=== PATIENT | female | born 1985 | race Caucasian/White ===

== ENCOUNTER → 2019-01-05 | Outpatient (CLI) | payer BC ==
--- NOTE | 2019-01-05 15:43 | Diagnostic Imaging Report ---
CHEST PA/LAT (2 VIEW) Indication: Shortness of breath. Comparison: None available. Findings: No focal pneumonic consolidation, pleural effusion or pneumothorax. Normal heart size and pulmonary vasculature. Impression: No acute cardiopulmonary process. Dictated by: Dictated on workstation # [id number]
== END ==
LOC: RAD FS 15:26
PROVIDERS: ATTEND Nurse Practitioner Family
DX: R06.02 Shortness of breath (principal)
CPT/HCPCS: 71046

== ENCOUNTER 2019-05-07 17:02 | Emergency (ER) | payer BC | END 2019-05-07 20:06 | disposition home or self-care (01) | LOC: ER FS 17:02 ==

== ENCOUNTER 2022-08-21 18:51 | Emergency (ER) | payer BC ==
[~2022-08-21] VITALS: Ht 175.2 cm; Wt 120.0 kg
--- NOTE | 2022-08-21 18:59 | ED General ---
General Stated Complaint: SOB,CP,MUSCLE SPASM IN LEGS Source of Information: Patient Exam Limitations: No Limitations History of Present Illness Date Seen by Provider: Aug 21, 2022 Time Seen by Provider: 18:55 Initial Comments Patient is a 37-year-old female with a history of lupus, chronic costochondritis, hypertension with recent hospitalization for bradycardia and hypokalemia. Patient reports increased chest wall pain pattern location similar to chronic costochondritis with increased severity and shortness of breath. Patient also patient's delayed cognition and decreased concentration consistent with previous lupus exacerbations. Symptom onset was yesterday and have gradually increased. She does not have fevers chills, headache, cough, sore throat. She denies blurred vision change in vision nausea vomiting sweats, urinary frequency urgency or dysuria. No other acute symptoms or complaints. Timing/Duration: Other Modifying Factors: improves with Other Associated Systoms: Other Allergies and Home Medications Allergies Coded Allergies: codeine (Verified Allergy, Unknown, 05/07/19) diphenhydramine (Verified Allergy, Unknown, 05/07/19) metronidazole (Verified Allergy, Unknown, 05/07/19) Patient Home Medication List Home Medication List Reviewed: Yes Review of Systems Review of Systems Constitutional: see HPI EENTM: see HPI Respiratory: see HPI Cardiovascular: see HPI Gastrointestinal: see HPI Genitourinary: see HPI : No Musculoskeletal: see HPI Skin: see HPI Psychiatric/Neurological: See HPI Hematologic/Lymphatic: See HPI Immunological/Allergic: see HPI All Other Systems Reviewed Negative Unless Noted: No Past Gncgzhk-Hfxdiw-Dwtrhf Hx Patient Social History Tobacco Use?: No Seasonal Allergies Seasonal Allergies: No Past Medical History Gallbladder Respiratory: Yes Asthma Cardiac: No Genitourinary: No Gastrointestinal: No Musculoskeletal: Yes Fibromyalgia Endocrine: Yes Lupus HEENT: Yes Macular Degeneration Cancer: No Psychosocial: No Integumentary: No Physical Exam Vital Signs Vital Signs - First Documented 08/21/22 18:54 Temp 36.6 Pulse 81 Resp 20 B/P (MAP) 162/83 (109) Pulse Ox 99 O2 Delivery Room Air Capillary Refill : Height, Weight, BMI Height: '" Weight: lbs. oz. kg; BMI Method: General Appearance: No Apparent Distress Eyes: Bilateral Eye Normal Inspection, Bilateral Eye PERRL, Bilateral Eye EOMI HEENT: PERRL/EOMI, Normal ENT Inspection, Pharynx Normal Neck: Full Range of Motion, Normal Inspection Respiratory: Lungs Clear, Normal Breath Sounds Cardiovascular: Regular Rate, Rhythm, No Edema Gastrointestinal: Non Tender, Soft Extremity: Non Tender, No Calf Tenderness Neurologic/Psychiatric: Alert, Oriented x3 Skin: Normal Color Focused Exam Sepsis Stage: Ruled Out Progress/Results/Core Measures Suspected Sepsis SIRS Temperature: Pulse: Respiratory Rate: Laboratory Tests 08/21/22 19:30: White Blood Count 9.6 Blood Pressure / Mean: Laboratory Tests 08/21/22 19:30: Creatinine 0.90, Platelet Count 288, Total Bilirubin 0.3 Results/Orders Lab Results Laboratory Tests Test 08/21/22 19:30 Range/Units White Blood Count 9.6 4.3-11.0 10^3/uL Red Blood Count 4.32 3.80-5.11 10^6/uL Hemoglobin 12.8 11.5-16.0 g/dL Hematocrit 37 35-52 % Mean Corpuscular Volume 86 80-99 fL Mean Corpuscular Hemoglobin 30 25-34 pg Mean Corpuscular Hemoglobin Concent 35 32-36 g/dL Red Cell Distribution Width 12.9 10.0-14.5 % Platelet Count 288 130-400 10^3/uL Mean Platelet Volume 9.5 9.0-12.2 fL Immature Granulocyte % (Auto) 0 % Neutrophils (%) (Auto) 65 42-75 % Lymphocytes (%) (Auto) 27 12-44 % Monocytes (%) (Auto) 6 0-12 % Eosinophils (%) (Auto) 1 0-10 % Basophils (%) (Auto) 1 0-10 % Neutrophils # (Auto) 6.2 1.8-7.8 10^3/uL Lymphocytes # (Auto) 2.6 1.0-4.0 10^3/uL Monocytes # (Auto) 0.6 0.0-1.0 10^3/uL Eosinophils # (Auto) 0.1 0.0-0.3 10^3/uL Basophils # (Auto) 0.1 0.0-0.1 10^3/uL Immature Granulocyte # (Auto) 0.0 0.0-0.1 10^3/uL Sodium Level 136 135-145 MMOL/L Potassium Level 4.0 3.6-5.0 MMOL/L Chloride Level 106 98-107 MMOL/L Carbon Dioxide Level 18 L 21-32 MMOL/L Anion Gap 12 5-14 MMOL/L Blood Urea Nitrogen 15 7-18 MG/DL Creatinine 0.90 0.60-1.30 MG/DL Estimat Glomerular Filtration Rate 84 BUN/Creatinine Ratio 17 Glucose Level 114 H 70-105 MG/DL Calcium Level 9.4 8.5-10.1 MG/DL Corrected Calcium 9.6 8.5-10.1 MG/DL Magnesium Level 1.9 1.6-2.4 MG/DL Total Bilirubin 0.3 0.1-1.0 MG/DL Aspartate Amino Transf (AST/SGOT) 14 5-34 U/L Alanine Aminotransferase (ALT/SGPT) 23 0-55 U/L Alkaline Phosphatase 60 40-136 U/L Troponin I < 0.30 <0.30 NG/ML Pro-B-Type Natriuretic Peptide 46.3 <125.0 PG/ML Total Protein 6.5 6.4-8.2 GM/DL Albumin 3.8 3.2-4.5 GM/DL My Orders Orders - IVY CHOWDHURY DO Cbc With Automated Diff (08/21/22 18:54) Comprehensive Metabolic Panel (08/21/22 18:54) Chest 1 View Ap/Pa Only (08/21/22 18:54) Ekg Tracing (08/21/22 18:54) Troponin I Fs (08/21/22 18:54) Magnesium (08/21/22 18:54) Probnp Fs (08/21/22 19:46) Dexamethasone Injection (Decadron Inje (08/21/22 20:45) Enoxaparin Injection (Lovenox Injection) (08/21/22 20:45) Vital Signs/I&O 08/21/22 18:54 Temp 36.6 Pulse 81 Resp 20 B/P (MAP) 162/83 (109) Pulse Ox 99 O2 Delivery Room Air Capillary Refill : Departure Communication (Admissions) Chest x-ray: No acute cardiopulmonary disease EKG: Sinus rhythm, no acute ST-T wave changes, normal WA, QRS, QTc intervals. Patient with atypical chest pain in same location and pattern as chronic costochondritis. Chest x-ray, EKG and troponin are reassuring. IM steroids given. Will place patient on a Medrol Dosepak for treatment of underlying lupus with instructions to follow-up with her acid bath mixer tomorrow for further management recommendations. Patient also reports bilateral leg pain and heaviness with recent hypokalemia. Potassium and electrolytes are normal. Patient does have risk factors for PE due to recent hospitalization including bilateral lower extremity pain. Ultrasound is not available at this facility. Suspect pain is musculoskeletal. Patient will be given a dose of Lovenox with instructions to return to the ED tomorrow during the day D-dimer when sonography is available.. Return precautions reviewed. Patient verbalizes understanding agreement discharge instructions prior to departure. Impression Primary Impression: Chest wall pain Additional Impressions: Costochondritis Bilateral leg pain History of lupus Disposition: HOME, SELF-CARE Condition: Stable Departure-Patient Inst. Decision time for Depature: 20:43 Referrals: CARLITOS BARAJAS MD (PCP/Family) Primary Care Physician Patient Instructions: Chest Pain (DC) Add. Discharge Instructions: You were evaluated in the emergency department for chest wall pain, shortness of breath and bilateral leg pain. EKG lab and imaging's were performed and are nondiagnostic. The exact cause of your symptoms has not been determined but may be related to lupus and lupus related complications. Please fill Medrol Dosepak and contact your acid bath mixer office tomorrow for further management of lupus. Blood clots in your lower extremities have not been ruled out, and need to return to the ER during daytime hours for ultrasounds of your lower extremities. In the meantime, if you develop new or worsening symptoms, return to the emergency department. IVY CHOWDHURY DO Aug 21, 2022 18:59
[2022-08-21 19:37] LABS: BASOPHILS # (AUTO) 0.1 10^3/uL (0.0-0.1); BASOPHILS % (AUTO) 1 % (0-10); EOSINOPHILS # (AUTO) 0.1 10^3/uL (0.0-0.3); EOSINOPHILS % (AUTO) 1 % (0-10); HEMATOCRIT 37 % (35-52); HEMOGLOBIN 12.8 g/dL (11.5-16.0); LYMPHOCYTES # (AUTO) 2.6 10^3/uL (1.0-4.0); LYMPHOCYTES % (AUTO) 27 % (12-44); MEAN CORPUSCULAR HEMOGLOBIN 30 pg (25-34); MEAN CORPUSCULAR HGB CONC 35 g/dL (32-36); MEAN CORPUSCULAR VOLUME 86 fL (80-99); MEAN PLATELET VOLUME 9.5 fL (9.0-12.2); MONOCYTES # (AUTO) 0.6 10^3/uL (0.0-1.0); MONOCYTES % (AUTO) 6 % (0-12); NEUTROPHILS # (AUTO) 6.2 10^3/uL (1.8-7.8); NEUTROPHILS % (AUTO) 65 % (42-75); PLATELET COUNT 288 10^3/uL (130-400); WHITE BLOOD COUNT 9.6 10^3/uL (4.3-11.0)
--- NOTE | 2022-08-21 19:54 | Diagnostic Imaging Report ---
INDICATION: Chest pain. COMPARISON: January 05, 2019. TECHNIQUE: Single radiograph of the chest dated August 21, 2022. FINDINGS: The cardiac silhouette is within normal limits in size. No significant pulmonary vascular congestion. The lungs are clear of focal pulmonary opacity. No pleural effusion. No pneumothorax. No acute osseous abnormality. IMPRESSION: Stable appearing examination without acute cardiopulmonary abnormality. Dictated by: Dictated on workstation # [id number]
[2022-08-21 20:21] LABS: ALANINE AMINOTRANSFERASE 23 U/L (0-55); ALKALINE PHOSPHATASE 60 U/L (40-136); BILIRUBIN,TOTAL 0.3 MG/DL (0.1-1.0); BUN/CREATININE RATIO 17; CALCIUM 9.4 MG/DL (8.5-10.1); CARBON DIOXIDE 18 MMOL/L (21-32); CHLORIDE 106 MMOL/L (98-107); GFR ESTIMATED 84; GLUCOSE 114 MG/DL (70-105); MAGNESIUM 1.9 MG/DL (1.6-2.4); SODIUM 136 MMOL/L (135-145)
[2022-08-21 20:22] LABS: ALBUMIN 3.8 GM/DL (3.2-4.5); TOTAL PROTEIN 6.5 GM/DL (6.4-8.2)
[2022-08-21] MEDS ORDERED: ENOXAPARIN 60 MG/0.6 ML (LOVENOX) SYR SC ONE (20:45)
[2022-08-21 21:00] VITALS: BP 179/76
[2022-08-21] MEDS ORDERED: NF-METHYLP PO (21:01)
== END 2022-08-21 21:00 | disposition home or self-care (01) ==
LOC: EDUNIT# 18:51 → ER FS 18:52
DX: M94.0 Chondrocostal junction syndrome [Tietze] (principal); M79.605 Pain in left leg; M79.604 Pain in right leg; M32.9 Systemic lupus erythematosus, unspecified; Z28.310 Unvaccinated for COVID-19
CPT/HCPCS: 36415; 71045; 80053; 83735; 83880; 84484; 85025; 93005

== ENCOUNTER → 2022-08-22 | Outpatient (CLI) | payer BC ==
[~2022-08-22] MED LIST: NF-METHYLP PO
--- NOTE | 2022-08-22 11:33 | Diagnostic Imaging Report ---
INDICATION: Bilateral leg pain. Bilateral lower extremity venous Doppler study was performed in the routine fashion with color flow Doppler and waveform analysis. FINDINGS: The common femoral veins, superficial femoral veins, popliteal veins and visualized portion of the tibial veins show normal compressibility and venous flow patterns. There is normal augmentation. IMPRESSION: No evidence of deep vein thrombosis in the major veins of both legs. Dictated by: Dictated on workstation # [id number]
== END ==
LOC: RAD FS 10:42
PROVIDERS: ATTEND Emergency Medicine
DX: M79.605 Pain in left leg (principal); M79.604 Pain in right leg; M32.9 Systemic lupus erythematosus, unspecified
CPT/HCPCS: 93970

== ENCOUNTER 2023-02-23 11:26 | Emergency (ER) | payer BC ==
[~2023-02-23] VITALS: Ht 172.7 cm; Wt 125.2 kg
--- NOTE | 2023-02-23 11:33 | ED General ---
General Stated Complaint: CP/L ARM PAIN AND WEAKNESS/NUMBNESS History of Present Illness Date Seen by Provider: Feb 23, 2023 Time Seen by Provider: 11:31 Initial Comments 38-year-old female with PMH of lupus/pleurisy/GERD/costochondritis, is here with complaints of chronic chest pain over the past couple of weeks, but today patient noticed the pain is going down her left upper extremity and also into her jaw. Patient does not have chest pain here in the ER at this time. Patient reports that she is having fluctuating changes in her heart rate and sometimes she feels like it is very fast, and other times it is very slow in the 40's, and she has associated mild SOB along with it. She does not have any known arrhythmias. Patient also states that her last BNP was elevated in the 800s and her PCP has scheduled her for an echo and stress test for next week. She was told to come to the ER by her PCP if any of her symptoms worsen. Patient is not having any chest pain or SOB in the ER and vitas stable. Denies fever and chills, cough, URI symptoms. Allergies and Home Medications Allergies Coded Allergies: codeine (Verified Allergy, Unknown, 05/07/19) diphenhydramine (Verified Allergy, Unknown, 05/07/19) metronidazole (Verified Allergy, Unknown, 05/07/19) Patient Home Medication List Home Medication List Reviewed: Yes Methylprednisolone (Medrol Dose pack) 4 Mg Tab, 4 MG PO UD Prescribed by: IVY CHOWDHURY on 08/21/222100 Review of Systems Review of Systems Constitutional: no symptoms reported EENTM: no symptoms reported Respiratory: no symptoms reported Cardiovascular: see HPI Musculoskeletal: no symptoms reported Skin: no symptoms reported Psychiatric/Neurological: No Symptoms Reported Hematologic/Lymphatic: No Symptoms Reported Past Ghivkzz-Ubzevi-Fbxgbp Hx Immunizations Up To Date First/Initial COVID19 Vaccinat: Unvaccinated Seasonal Allergies Seasonal Allergies: No Past Medical History Surgery/Hospitalization HX: Lupus, HTN, GERD, Cholecystectomy, Partial Thyroidectomy Gallbladder Respiratory: Yes Asthma Cardiac: No Genitourinary: No Gastrointestinal: No Musculoskeletal: Yes Fibromyalgia Endocrine: Yes Lupus HEENT: Yes Macular Degeneration Cancer: No Psychosocial: No Integumentary: No Physical Exam Vital Signs Vital Signs - First Documented 02/23/23 11:30 Temp 36.0 Pulse 91 Resp 17 B/P (MAP) 142/87 (105) Pulse Ox 99 O2 Delivery Room Air Capillary Refill : Height, Weight, BMI Height: '" Weight: lbs. oz. kg; 39.00 BMI Method: General Appearance: No Apparent Distress, WD/WN HEENT: PERRL/EOMI Neck: Full Range of Motion, Normal Inspection, Non Tender, Supple Respiratory: Chest Non Tender, Lungs Clear, Normal Breath Sounds, No Accessory Muscle Use, No Respiratory Distress, Other (Patient is satting at 100% on room air the entire time in the ER) Cardiovascular: Regular Rate, Rhythm, No Edema, Normal Peripheral Pulses, Other (Bilateral legs are normal, no swelling, no erythema.) Gastrointestinal: Normal Bowel Sounds, Non Tender, Soft Extremity: Normal Inspection, Normal Range of Motion, Non Tender, No Calf Tenderness (Homans' sign negative bilaterally) Neurologic/Psychiatric: Alert, Oriented x3, No Motor/Sensory Deficits, Normal Mood/Affect, crossbow maker II-XII Norm as Tested Skin: Normal Color Lymphatic: No Adenopathy Progress/Results/Core Measures Suspected Sepsis SIRS Temperature: Pulse: Respiratory Rate: Laboratory Tests 02/23/23 11:40: White Blood Count 8.2 Blood Pressure / Mean: Laboratory Tests 02/23/23 11:40: Creatinine 0.80, INR Comment 0.8, Platelet Count 310, Total Bilirubin 0.3 Results/Orders Lab Results Laboratory Tests Test 02/23/23 11:30 02/23/23 11:40 Range/Units Urine Color YELLOW Urine Clarity CLEAR Urine pH 6.0 5-9 Urine Specific [place] 1.010 L 1.016-1.022 Urine Protein NEGATIVE NEGATIVE Urine Glucose (UA) NEGATIVE NEGATIVE Urine Ketones NEGATIVE NEGATIVE Urine Nitrite NEGATIVE NEGATIVE Urine Bilirubin NEGATIVE NEGATIVE Urine Urobilinogen 0.2 < = 1.0 MG/DL Urine Leukocyte Esterase NEGATIVE NEGATIVE Urine RBC (Auto) TRACE-I H NEGATIVE Urine RBC NONE /HPF Urine WBC 0-2 /HPF Urine Squamous Epithelial Cells 5-10 /HPF Urine Crystals NONE /LPF Urine Bacteria FEW H /HPF Urine Casts NONE /LPF Urine Mucus MODERATE H /LPF Urine Culture Indicated NO Urine Opiates Screen NEGATIVE NEGATIVE Urine Oxycodone Screen NEGATIVE NEGATIVE Urine Methadone Screen NEGATIVE NEGATIVE Urine Propoxyphene Screen NEGATIVE NEGATIVE Urine Barbiturates Screen NEGATIVE NEGATIVE Ur Tricyclic Antidepressants Screen NEGATIVE NEGATIVE Urine Phencyclidine Screen NEGATIVE NEGATIVE Urine Amphetamines Screen NEGATIVE NEGATIVE Urine Methamphetamines Screen NEGATIVE NEGATIVE Urine Benzodiazepines Screen NEGATIVE NEGATIVE Urine Cocaine Screen NEGATIVE NEGATIVE Urine Cannabinoids Screen NEGATIVE NEGATIVE White Blood Count 8.2 4.3-11.0 10^3/uL Red Blood Count 4.76 3.80-5.11 10^6/uL Hemoglobin 14.1 11.5-16.0 g/dL Hematocrit 41 35-52 % Mean Corpuscular Volume 86 80-99 fL Mean Corpuscular Hemoglobin 30 25-34 pg Mean Corpuscular Hemoglobin Concent 35 32-36 g/dL Red Cell Distribution Width 13.0 10.0-14.5 % Platelet Count 310 130-400 10^3/uL Mean Platelet Volume 9.4 9.0-12.2 fL Immature Granulocyte % (Auto) 0 % Neutrophils (%) (Auto) 68 42-75 % Lymphocytes (%) (Auto) 24 12-44 % Monocytes (%) (Auto) 5 0-12 % Eosinophils (%) (Auto) 2 0-10 % Basophils (%) (Auto) 1 0-10 % Neutrophils # (Auto) 5.6 1.8-7.8 10^3/uL Lymphocytes # (Auto) 2.0 1.0-4.0 10^3/uL Monocytes # (Auto) 0.4 0.0-1.0 10^3/uL Eosinophils # (Auto) 0.1 0.0-0.3 10^3/uL Basophils # (Auto) 0.1 0.0-0.1 10^3/uL Immature Granulocyte # (Auto) 0.0 0.0-0.1 10^3/uL Prothrombin Time 12.1 L 12.2-14.7 SEC INR Comment 0.8 0.8-1.4 Activated Partial Thromboplast Time 24 24-35 SEC D-Dimer 1.37 H 0.00-0.49 UG/ML Sodium Level 137 135-145 MMOL/L Potassium Level 4.0 3.6-5.0 MMOL/L Chloride Level 104 98-107 MMOL/L Carbon Dioxide Level 22 21-32 MMOL/L Anion Gap 11 5-14 MMOL/L Blood Urea Nitrogen 11 7-18 MG/DL Creatinine 0.80 0.60-1.30 MG/DL Estimat Glomerular Filtration Rate 96 BUN/Creatinine Ratio 14 Glucose Level 100 70-105 MG/DL Calcium Level 9.2 8.5-10.1 MG/DL Corrected Calcium 9.1 8.5-10.1 MG/DL Magnesium Level 2.0 1.6-2.4 MG/DL Total Bilirubin 0.3 0.1-1.0 MG/DL Aspartate Amino Transf (AST/SGOT) 18 5-34 U/L Alanine Aminotransferase (ALT/SGPT) 28 0-55 U/L Alkaline Phosphatase 72 40-136 U/L Troponin I < 0.30 <0.30 NG/ML Pro-B-Type Natriuretic Peptide 61.7 <125.0 PG/ML Total Protein 7.0 6.4-8.2 GM/DL Albumin 4.1 3.2-4.5 GM/DL My Orders Orders - KALEB JEFFERS MD Continuous Ekg Monitoring (02/23/23 11:55) Ekg Tracing (02/23/23 11:55) Chest 1 View Ap/Pa Only (02/23/23 11:55) Cbc With Automated Diff (02/23/23 11:55) Comprehensive Metabolic Panel (02/23/23 11:55) Fibrin Degradation Products (02/23/23 11:55) Drug Screen Stat (Urine) (02/23/23 11:55) Magnesium (02/23/23 11:55) Protime With Inr (02/23/23 11:55) Partial Thromboplastin Time (02/23/23 11:55) Ua Culture If Indicated (02/23/23 11:55) Probnp Fs (02/23/23 11:55) Troponin I Fs (02/23/23 11:55) Ct Angio Chest W (R/O Pe) (02/23/23 12:55) Ct Angio Chest W (R/O Pe) (02/23/23 ) Iohexol Injection (Omnipaque 350 Mg/Ml 1 (02/23/23 13:00) Received Contrast (Hold Metformin- Contr (02/23/23 13:00) Ns (Ivpb) (Sodium Chloride 0.9% Ivpb Bag (02/23/23 13:00) Enoxaparin Injection (Lovenox Injection) (02/23/23 14:15) Vital Signs/I&O 02/23/23 11:30 Temp 36.0 Pulse 91 Resp 17 B/P (MAP) 142/87 (105) Pulse Ox 99 O2 Delivery Room Air Capillary Refill : Progress Note : Progress Note 1. ACS RULED OUT: ELEVATED D-DIMER - CXR: normal - EKG/ Troponin - BNP: normal - CBC/CMP: unremarkable - UA/ UDS: negative -Patient's vital signs have been stable the entire time she was in the ER and she has been satting 100% on room air, with a normal heart rate. The D-dimer may be elevated due to her autoimmune condition, and as per clinical examination and vitals, patient is unlikely to have a PE. Pt is insistent to get a VQ scan. I have also called [facility] and her PCP, Dr Barajas as well, but left him a voicemail since he did not garbage pick up worker. I spoke to the electro mechanical technician at [facility] , who stated that they will have VQ scan available only on Friday. - Pt is allergic to contrast and to Benadryl, so an out-patient order form given for VQ scan. Pt instructed to call scheduling at [facility] tomorrow morning to schedule VQ scan for the afternoon. - Gave pt Lovenox 100 scin the ER - If symptoms such as worsening SOB or chest pain develops, advised pt to go to the ER - Follow up with PCP in the next 3 days and call PCP tomorrow morning. -The patient was seen in the ED, and treated appropriately to presentation at a specific point in time. Patient is informed that there is a possibility that disease and illness can evolve and change in acuity rapidly or slowly after patient is discharged from the ER. Precautionary advice given to the patient for immediate return to ER if symptoms worsen or do not resolve, and to seek emergency care sooner rather than later. Pt also advised on the importance of PCP follow up and compliance with management and follow up plan with PCP and/or specialist, as this is part of the management plan. Pt verbally expressed understanding. ECG Initial ECG Rhythm: Normal Sinus Initial ECG Intervals: Normal Initial ECG Impression: Normal Diagnostic Imaging Diagonstic Imaging: Xray Plain Films/CT/US/NM/MRI: chest Follow-up with PCP to: Discuss Further Options (I have called Dr. Barajas at 13: 30 today to discuss patient since Dr. Barajas is her PCP, I left a voicemail for him but he has not called back. Today is a Friday.) Departure Impression Primary Impression: Elevated d-dimer Disposition: HOME, SELF-CARE Condition: Stable Departure-Patient Inst. Referrals: CARLITOS BARAJAS MD (PCP) Primary Care Physician Patient Instructions: D-Dimer Test, Heart Healthy Diet, Pericarditis, Adult (DC) Add. Discharge Instructions: - Pt is allergic to contrast and to Benadryl, out-patient order form given for VQ scan. Pt instructed to call scheduling at [facility] tomorrow morning to schedule VQ scan for the afternoon. - Vitals stable in the ER - If symptoms such as worsening SOB or chest pain develops, advised pt to go to the ER - Follow up with PCP in the next 3 days and call PCP tomorrow morning. KALEB JEFFERS MD Feb 23, 2023 11:33
[2023-02-23 12:01] LABS: BASOPHILS # (AUTO) 0.1 10^3/uL (0.0-0.1); BASOPHILS % (AUTO) 1 % (0-10); EOSINOPHILS # (AUTO) 0.1 10^3/uL (0.0-0.3); EOSINOPHILS % (AUTO) 2 % (0-10); HEMATOCRIT 41 % (35-52); HEMOGLOBIN 14.1 g/dL (11.5-16.0); LYMPHOCYTES % (AUTO) 24 % (12-44); MEAN CORPUSCULAR HEMOGLOBIN 30 pg (25-34); MEAN CORPUSCULAR HGB CONC 35 g/dL (32-36); MEAN CORPUSCULAR VOLUME 86 fL (80-99); MEAN PLATELET VOLUME 9.4 fL (9.0-12.2); MONOCYTES # (AUTO) 0.4 10^3/uL (0.0-1.0); MONOCYTES % (AUTO) 5 % (0-12); NEUTROPHILS # (AUTO) 5.6 10^3/uL (1.8-7.8); NEUTROPHILS % (AUTO) 68 % (42-75); PLATELET COUNT 310 10^3/uL (130-400); WHITE BLOOD COUNT 8.2 10^3/uL (4.3-11.0)
[2023-02-23 12:02] LABS: BILIRUBIN,URINE NEGATIVE (NEGATIVE); CLARITY,URINE CLEAR; COLOR,URINE YELLOW; GLUCOSE, URINE (UA) NEGATIVE (NEGATIVE); KETONES,URINE NEGATIVE (NEGATIVE); LEUKOCYTE ESTERASE ,URINE NEGATIVE (NEGATIVE); NITRITE,URINE NEGATIVE (NEGATIVE); PROTEIN,URINE NEGATIVE (NEGATIVE)
[2023-02-23 12:07] LABS: BACTERIA,URINE FEW /HPF; WBC,URINE 0-2 /HPF
[2023-02-23 12:12] LABS: AMPHETAMINE SCREEN, URINE NEGATIVE (NEGATIVE); BARBITURATE SCREEN URINE NEGATIVE (NEGATIVE); BENZODIAZEPINES SCREEN URINE NEGATIVE (NEGATIVE); CANNABINOID SCREEN, URINE NEGATIVE (NEGATIVE); COCAINE SCREEN URINE NEGATIVE (NEGATIVE); METHADONE STAT NEGATIVE (NEGATIVE); OPIATE SCREEN URINE NEGATIVE (NEGATIVE); OXYCODONE STAT NEGATIVE (NEGATIVE); PROPOXYPHENE STAT NEGATIVE (NEGATIVE); TRICYCLIC ANTIDEPRESSANTS SCRE NEGATIVE (NEGATIVE)
[2023-02-23 12:13] LABS: INR 0.8 (0.8-1.4); PROTHROMBIN TIME PATIENT 12.1 SEC (12.2-14.7)
[2023-02-23 12:21] LABS: FIBRIN DEGRADATION PRODUCTS 1.37 UG/ML (0.00-0.49); SODIUM 137 MMOL/L (135-145)
[2023-02-23 12:22] LABS: ALANINE AMINOTRANSFERASE 28 U/L (0-55); ALBUMIN 4.1 GM/DL (3.2-4.5); ALKALINE PHOSPHATASE 72 U/L (40-136); BILIRUBIN,TOTAL 0.3 MG/DL (0.1-1.0); BUN/CREATININE RATIO 14; CALCIUM 9.2 MG/DL (8.5-10.1); CARBON DIOXIDE 22 MMOL/L (21-32); CHLORIDE 104 MMOL/L (98-107); GFR ESTIMATED 96; GLUCOSE 100 MG/DL (70-105)
--- NOTE | 2023-02-23 12:42 | Diagnostic Imaging Report ---
EXAMINATION: Chest 1 view HISTORY: Chest pain. COMPARISON: 08/21/2022. FINDINGS: The lung volumes are normal. No focal consolidation is seen. No large pleural effusion or pneumothorax is seen. The cardiomediastinal silhouette is normal in size and contour. No acute osseous abnormality is seen. IMPRESSION: 1. No acute pleuroparenchymal process. Dictated by: Dictated on workstation # [id number]
[2023-02-23] MEDS ORDERED: HOLD METFORMIN - RECEIVED CONTRAST 20 ML VIAL IV SCH (13:00)
[2023-02-23] MEDS ORDERED: NS 100 ML (IVPB) BAG IV ONE (13:00)
[2023-02-23] MEDS ORDERED: IOHEXOL 350 MG/ML 100 ML (OMNIPAQUE 350) VIAL IV ONE (13:00)
[2023-02-23] MEDS ORDERED: ENOXAPARIN 100 MG/1 ML (LOVENOX) SYR SC ONE (14:15)
[2023-02-23 14:19] VITALS: BP 121/78
== END 2023-02-23 14:20 | disposition home or self-care (01) ==
LOC: EDUNIT# 11:26 → ER FS 11:29
DX: R79.1 Abnormal coagulation profile (principal)
CPT/HCPCS: 36415; 71045; 80053; 80306; 81000; 83735; 83880; 84484; 85025; 85379; 85610; 85730; 93005